=== PATIENT | female | born 1930 | race Caucasian/White ===

== ENCOUNTER 2017-11-14 10:09 | Emergency (ER) | payer MEDICARE, BC ==
[~2017-11-14] VITALS: Ht 170.2 cm; Wt 63.5 kg
[~2017-11-14 10:09] MED LIST: ULTRAM50 MG PO
--- OUTSIDE RECORDS SUMMARY | 2017-11-14 10:12 | XMS REPORT ---
Author Organization Unknown Address [address] [place] [address] Phone [phone] Care Team Providers Care Modeling Analyst Name Role Phone SHELLY Razia THURSDAY 129 [phone] CARMELINA MONTANA MD 188 [phone] SOTO ZIMMER MD 126 [phone] SINAN OLIVEIRA MD 107 [phone] DC ESTRADA 62 [phone] MAXIMILIANO ABDUL MD 3 [phone] Allergies Code Code System Name Reaction Severity Status Onset 2670 RxNorm Codeine Active 07/22/2010 NKDA Medications Name Status Start Date Stop Date amlodipine 10 mg tablet Completed 07/16/2016 amlodipine 2.5 mg tablet Completed 09/07/2017 atenolol 100 mg tablet Completed 09/07/2017 cephalexin 500 mg capsule Completed 09/07/2017 ciprofloxacin 250 mg tablet Completed 08/18/2017 diltiazem 60 mg tablet Take 1 tablet every day by oral route for 30 days. Active Not available donepezil 10 mg tablet Active Not available doxycycline monohydrate 100 mg tablet Completed 08/18/2017 Eliquis 5 mg tablet Active Not available ergocalciferol (vitamin D2) 50,000 unit capsule 1 capsule every week by oral route. Completed 10/09/2016 Estrace 0.01% (0.1 mg/gram) vaginal cream Completed 09/07/2017 fluconazole 150 mg tablet Completed 08/18/2017 furosemide 20 mg tablet Completed 08/18/2017 furosemide 40 mg tablet Take 1 tablet every day by oral route for 30 days. Active Not available gabapentin 100 mg capsule Take 1 capsule twice a day by oral route for 30 days. Active Not available gabapentin 300 mg capsule Completed 08/18/2017 gemfibrozil 600 mg tablet Completed 09/07/2017 hydrocodone 7.5 mg-acetaminophen 325 mg tablet Completed 07/16/2016 indomethacin 50 mg capsule Take 1 capsule 3 times a day by oral route. Completed 09/07/2017 lidocaine-prilocaine 2.5 %-2.5 % topical cream PRN Completed 08/18/2017 lisinopril 20 mg tablet Completed 07/16/2016 metoprolol succinate ER 50 mg tablet,extended release 24 hr Completed metoprolol tartrate 25 mg tablet Completed 08/18/2017 metronidazole 1 % topical gel Completed 07/16/2016 Myrbetriq 25 mg tablet,extended release Take 1 tablet every day by oral route for 30 days. Active Not available nitrofurantoin monohydrate/macrocrystals 100 mg capsule Completed 2016 oxybutynin chloride 5 mg tablet Active Not available phenazopyridine 100 mg tablet Completed 08/18/2017 potassium chloride ER 10 mEq capsule,extended release Completed 08/18/2017 prednisone 20 mg tablet Take every 24 hours by oral route. Completed 09/07/2017 Premarin 0.3 mg tablet Completed 10/22/2016 primidone 50 mg tablet Active Not available ropinirole 1 mg tablet Active Not available spironolactone 25 mg tablet Take 1 tablet twice a day by oral route for 90 days. 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 Multiple Myeloma in Remission Active 07/16/2016 Dementia Active 07/16/2016 Benign Essential Hypertension Active 07/16/2016 Bladder Muscle Dysfunction - Overactive Active 07/16/2016 Dysuria Active 07/16/2016 Blood in Urine Active 07/23/2016 Restless Legs Active 08/18/2017 Chronic Atrial Fibrillation Active 08/18/2017 Varicose Veins of Lower Extremity Active 08/18/2017 Procedures Date Name Performed by 04/06/2007 Colonoscopy Notes: REPEAT IN 3 YRS Information not available Back Surgery Notes: Unknown surgery, "removed discs" Information not available Hysterectomy (Total) Information not available 10/22/2016 US, Doppler, Venous [facility] [address] [place] [address] (Work Place) 09/07/2017 XR, Hip + Pelvis, Bilateral [facility] [address] [place] [address] (Work Place) Notes: colon resection for Diverticulitis-1983 Lab Results Date Name Specimen Result Interpretation Description Value Range Status Address 10/22/2016 Uric Acid, Serum or Plasma Uric Acid 4.9 mg/dL 2.6- 6.0 mg/dL Final [facility]: [address] [place] [address], [place] 10/09/2016 CMP, Serum or Plasma Alt 11 U/L 0-55 U/L Final [facility]: [address] Ast 20 U/L 5-34 U/L Final [facility]: [address] High Bun 27 mg/dL 7-20 mg/dL Final [facility]: [address] Alk Phos 99 unit/L 40-150 unit/L Final [facility]: [address] Glucose 92 mg/dL 70-99 mg/dL Final [facility]: [address] Albumin 4.1 g/dL 3.5-5.0 g/dL Final [facility]: [address] Creatinine 0.93 mg/dL 0.57-1.11 mg/dL Final [facility]: [address] Low eGFR Non- 57 mL/min/1.73m2 >60 mL/min/ 1.73m2 Final [facility]: [address] Total Bilirubin 0.2 mg/dL 0.2-1.2 mg/dL Final [facility]: [address] eGFR - >60 mL/min/1.73m2 >60 mL/min/1.73m2 Final [facility]: [address] Sodium 139 mEq/L 137-144 mEq/L Final [facility]: [address] Potassium 4.9 mEq/L 3.5-5.0 mEq/L Final [facility]: [address] Chloride 107 mmol/L 101-110 mmol/L Final [facility]: [address] Total Protein 7.1 g/dL 6.4-8.3 g/dL Final [facility]: [address] Calcium 9.0 mg/dL 8.4-10.2 mg/dL Final [facility]: [address] Co2 23.2 mmol/L 22.0-31.0 mmol/L Final [facility]: [address] Anion Gap 9 calc Final [facility]: [address] [place] [address], [place] 10/09/2016 Lipid Panel, Serum Low Hdl 37 mg/dL 40-60 mg/dL Final [facility]: [address] Triglyceride 146 mg/dL 0-149 mg/dL Final [facility]: [address] VLDL Calc. 29 mg/dL Final [facility]: [address] cholesterol/HDL Ratio 3 mg/dL Final [facility]: [address] non-HDL Cholesterol Calc. 70 mg/dL 0-160 mg/dL Final [facility]: [address] Cholesterol 107 mg/dL 0-199 mg/dL Final [facility]: [address] LDL Calc. 41 mg/dL 0-130 mg/dL Final [facility]: [address] [place] [address], [place] 10/09/2016 Culture, Urine ABNORMAL Culture, Urine, Routine Final [facility]: [address] 07/23/2016 Urinalysis Complete, Reflex Culture Normal Color dark yellow yellow Final [facility]: [address] ABNORMAL Appearance cloudy clear Final [facility]: [address] Normal Specific [place] 1.018 1.001-1.035 Final [facility]: [address] Normal Ph 6.0 5.0-8.0 Final [facility]: [address] Normal Glucose negative negative Final [facility]: [address] [facility], [place] Normal Bilirubin negative negative Final [facility]: [address] [facility], [place] Normal Ketones negative negative Final [facility]: [address], [place] Normal Occult Blood negative negative Final [facility]: [address] [facility], [place] ABNORMAL Protein 1+ negative Final [facility]: [address] [place] [address], [place] Normal Nitrite negative negative Final [facility]: [address] [facility], [place] ABNORMAL Leukocyte Esterase 3+ negative Final [facility]: [address] [place] [address], [place] ABNORMAL Wbc 20-40 /hpf < or=5 /hpf Final [facility]: [address] [place] [address], [place] ABNORMAL Rbc 3-10 /hpf < or=2 /hpf Final [facility]: [address] [place] [address], [place] ABNORMAL Squamous Epithelial Cells 20-40 /hpf < or=5 /hpf Final [facility]: [address] ABNORMAL Bacteria moderate /hpf none seen /hpf Final [facility]: [address] [place] [address], [place] ABNORMAL Hyaline Cast 0-1 /lpf none seen /lpf Final [facility]: [address] Jara [address] [place] [address] Comments few mucous threads Final [facility]: [address] [place] [address], [place] Reflexive Urine Culture culture indicated - results to follow Final [facility]: [address], [place] 07/23/2016 Culture, Urine ABNORMAL Culture, Urine, Routine Final [facility]: [address] Jara [facility], [place] 07/16/2016 Urinalysis Complete, Reflex Culture Normal Color yellow yellow Final [facility]: [address] [facility], [place] ABNORMAL Appearance cloudy clear Final [facility]: [address] [place] [address], [place] Normal Specific [place] 1.010 1.001-1.035 Final [facility]: [address]ara [facility], [place] Normal Ph 6.5 5.0-8.0 Final [facility]: [address] [place] [address], [place] Normal Glucose negative negative Final [facility]: [address] [place] [address], [place] Normal Bilirubin negative negative Final [facility]: [address] Normal Ketones negative negative Final [facility]: [address] Normal Occult Blood negative negative Final [facility]: [address] ABNORMAL Protein trace negative Final [facility]: [address] ABNORMAL Nitrite positive negative Final [facility]: [address] ABNORMAL Leukocyte Esterase 3+ negative Final [facility]: [address] ABNORMAL Wbc > or=60 /hpf < or=5 /hpf Final [facility]: [address] Normal Rbc none seen /hpf < or=2 /hpf Final [facility]: [address] Squamous Epithelial Cells 0-5 /hpf < or=5 /hpf Final [facility]: [address] ABNORMAL Bacteria many /hpf none seen /hpf Final [facility]: [address] Normal Hyaline Cast none seen /lpf none seen /lpf Final [facility]: [address] Reflexive Urine Culture culture indicated - results to follow [facility]: [address] 07/16/2016 Culture, Urine ABNORMAL Culture, Urine, Routine Final [facility]: [address] 12/19/2015 CBC W/ Auto Diff No observation recorded. [facility]: [id number], [place] 02/13/2015 CMP, Serum or Plasma No observation recorded. [facility]: [id number], [place] Urinalysis, Dipstick Color Glucose negative [facility] : [address] [facility], [place] Color Bilirubin negative [facility]: [address] [facility], [place] Color Ketones negative [facility]: [address] [facility] , [place] Color Specific [place] 1.015 [facility]: [address], [place] Color Blood small [facility]: [address] [facility], [place] Color PH 7.5 [facility]: [address] [facility], [place] Color Protein negative [facility]: [address] , [place] Color Urobilinogen 0.2 [facility]: [address] , [place] Color Nitrites negative [facility]: [address] , [place] Color Leukocytes large [facility]: [address] , [place] Urinalysis, Dipstick Color Glucose negative [facility] : [address], [place] Color Bilirubin negative [facility]: [address], [place] Color Ketones negative [facility]: [address] , [place] Color Specific [place] 1.025 [facility]: [address], [place] Color Blood negative [facility]: [address], [place] Color PH 6.0 [facility]: [address], [place] Color Protein 100 [facility]: [address], [place] Color Urobilinogen 0.2 [facility]: [address] , [place] Color Nitrites negative [facility]: [address] , [place] Color Leukocytes small [facility]: [address] , [place] Urinalysis, Dipstick Color Glucose negative [facility] : [address], [place] Color Bilirubin negative [facility]: [address], [place] Color Ketones negative [facility]: [address] , [place] Color Specific [place] 1.015 [facility]: [address], [place] Color Blood negative [facility]: [address], [place] Color PH 6.5 [facility]: [address], [place] Color Protein 30 [facility]: [address], [place] Color Urobilinogen 0.2 [facility]: [address] , [place] Color Nitrites negative [facility]: [address] , [place] Color Leukocytes negative [facility]: [address], [place] Urinalysis, Dipstick Color Glucose negative [facility] : [address], [place] Color Bilirubin negative [facility]: [address], [place] Color Ketones negative [facility]: [address] , [place] Color Specific [place] 1.015 [facility] [place]: [address], [place] Color Blood trace [facility]: [address], [place] Color PH 5.5 [facility]: [address], [place] Color Protein 100 [facility]: [address], [place] Color Urobilinogen 0.2 [facility]: [address] , [place] Color Nitrites positive [facility]: [address] , [place] Color Leukocytes small [facility]: [address] , [place] Urinalysis, Dipstick Urine Color Glucose negative [facility] [place]: [address], [place] Urine Color Bilirubin negative [facility]: [address], [place] Urine Color Ketones negative [facility]: [address], [place] Urine Color Specific [place] 1.030 [facility]: [address], [place] Urine Color Blood trace [facility] [facility]: [address], [place] Urine Color PH 6.0 [facility]: [address], [place] Urine Color Protein 100 [facility]: [address], [place] Urine Color Urobilinogen 0.2 [facility]: [address], [place] Urine Color Nitrites negative [facility]: [address], [place] Urine Color Leukocytes small [facility]: [address], [place] Urinalysis, Dipstick Color Color yellow [facility]: [address], [place] Color Appearance clear [facility]: [address] , [place] Color Glucose negative [facility]: [address] , [place] Color Bilirubin negative [facility]: [address], [place] Color Ketones negative [facility]: [address] [facility] [place] Color Specific [place] 1.020 [facility] [facility]: [address] [facility] [place] Color Blood trace [facility]: [address] [facility] [place] Color PH 6.5 [facility]: [address] [facility] [place] Color Protein 30 [facility]: [address] [facility] [place] Color Urobilinogen 0.2 [facility]: [address] [facility] Color Nitrites negative [facility]: [address] [facility] [place] Color Leukocytes large [facility]: [address] [facility] Past Encounters 09/16/2017 Chondrocalcinosis of Hip Joint Memo Hobbs MD: [address] [place] [phone], Ph. 09/07/2017 Body Mass Index 20-24 - Normal; Hip Pain Memo Hobbs MD: [address] [place] [phone], Ph. 08/18/2017 Adult Health Examination; Body Mass Index 20-24 - Normal; Advance Directive Discussed with Patient; Depression Screening; Acute Urinary Tract Infection; Pneumococcal Vaccination; Immunization; Chronic Atrial Fibrillation; Varicose Veins of Lower Extremity; Bladder Muscle Dysfunction - Overactive; Dementia; Multiple Myeloma in Remission; Restless Legs Maximiliano Garsia MD: [address] [place] [phone], Ph. [phone] 11/10/2016 Edema of Lower Extremity; Cystocele; Unsteady Gait Maximiliano Garsia MD: [address] [place] [phone], Ph. [phone] 10/31/2016 Cystocele Ailyn Bosch MD: [address] [place] [phone], Ph. 10/27/2016 Arthralgia of the Ankle And/or Foot Maximilianonerissa Garsia MD: [address] [place] [phone], Ph. 10/22/2016 Swelling of Right Lower Limb; Arthralgia of the Ankle And/or Foot; Acute Urinary Tract Infection Maximiliano Garsia MD: [address] [place] [phone], Ph. [phone] 10/09/2016 Mixed Hypercholesterolemia and Hypertriglyceridemia; Acute Urinary Tract Infection; Bladder Muscle Dysfunction - Overactive; Postmenopausal State Maximiliano Garsia MD: [address] [place] [phone], Ph. [phone] 07/23/2016 Acute Urinary Tract Infection; Blood in Urine; Benign Essential Hypertension; Dementia; Multiple Myeloma in Remission; Adult Health Examination Amparo Cintron MD: [address] [place] [phone], Ph. 07/16/2016 Bladder Muscle Dysfunction - Overactive; Dysuria; Benign Essential Hypertension ; Multiple Myeloma in Remission; Dementia; Adult Health Examination Amparo Cintron MD: [address] [place] [phone], Ph. Social History Smoking Status Never Smoker Vaccine List Vaccine Type influenza, unspecified formulation 03/29/2016 pneumococcal, unspecified formulation 09/27/2014 Plan of Care Patient Instructions continue tylenol prn tylenol prn ,await xr result Screening Recommendations 1. Vaccines Pneumococcal: discussed today and information sent with patient in their [place] [facility] folder Influenza: discussed today and information sent with patient in their [place] [facility] folder Shingles: discussed today and information sent with patient in their [place] [facility] folder Tetanus: discussed today and information sent with patient in their [place] [facility] folder 2. Mammography Screening: discussed today and information sent with patient in their [place] [facility] folder 3. Colorectal cancer Screening Colonoscopy: discussed today and information sent with patient in their [place] [facility] folder Fecal Occult Blood: discussed today and information sent with patient in their [place] [facility] folder 4. Bone Mass Measurement: discussed today 5. Pap test / Pelvic Exam Screening: discussed today 6. Eye Exam Screening: discussed today 7. Cholesterol Screening: discussed today 8. Diabetes Screening: discussed today It was good to see you in the office today for your Medicare Annual Wellness Visit. You have been provided some information on healthy nutrition, including a diet rich in fruits and vegetables, minimizing simple carbohydrates, salt, and saturated fats. I want to encourage regular cardiovascular exercise such as walking at least 30 minutes daily, 5 times per week. Please remember to schedule any preventive health measures that we talked about today. You have also been provided education on fall prevention and community- based lifestyle interventions to help reduce health risks and promote healthy living in your [employer] folder. Reminders Provider Appointments None recorded. Lab None recorded. Referral None recorded. Procedures None recorded. Surgeries None recorded. Imaging None recorded. 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 Height Weight Blood Pressure 5 ft 5 in (1) 152/90 mm[Hg] (2) 150/90 mm[Hg] 10/31/2016 11:30AM Est Patient Height Weight BMI Blood Pressure 5 ft 5 in 158 lbs 26.3 kg/m2 (1) 164/90 mm[Hg] (2) 158/88 mm[Hg] 10/27/2016 11:30AM Est Patient Height Weight BMI Blood Pressure 5 ft 5 in 155 lbs 25.8 kg/m2 125/71 mm[Hg] 10/22/2016 10:00AM Est Patient Height Weight Blood Pressure 5 ft 5 in 108/78 mm[Hg] 10/09/2016 11:45AM Work In Same Day Height Weight BMI Blood Pressure 5 ft 5 in 155 lbs 25.8 kg/m2 106/65 mm[Hg] 07/23/2016 02:30PM Est Patient Height Weight BMI Blood Pressure 5 ft 5 in 146 lbs 24.3 kg/m2 (1) 152/79 mm[Hg] (2) 172/85 mm[Hg] 07/16/2016 03:15PM Est Patient Height Weight BMI Blood Pressure 5 ft 5 in 146 lbs 24.3 kg/m2 (1) 145/77 mm[Hg] (2) 123/63 mm[Hg]
[2017-11-14 11:06] VITALS: BP 132/69
== END 2017-11-14 11:00 | disposition home or self-care (01) ==
LOC: ER 10:09
DX: B02.9 Zoster without complications (principal)
CPT/HCPCS: 99282